=== PATIENT | male | born 1980 | race African-American/Black ===

== ENCOUNTER 2024-01-27 09:16 | Emergency (ER) | payer MEDICAID, MEDICARE ==
[~2024-01-27] VITALS: Ht 177.8 cm; Wt 95.0 kg
[2024-01-27 09:29] VITALS: BP 138/94; PULSE 94; RESP 16; TEMP 98.1; O2SAT 99
== END 2024-01-27 09:50 | disposition left against medical advice (07) ==
LOC: ER 09:30
DX: M21.20 Flexion deformity, unspecified site (principal); Z86.59 Personal history of other mental and behavioral disorders
CPT/HCPCS: 99283